=== PATIENT | female | born 1955 | race Caucasian/White ===

== ENCOUNTER 2017-06-08 13:02 | Emergency (ER) | payer MEDICAID ==
[~2017-06-08] VITALS: Ht 177.8 cm; Wt 101.8 kg
[~2017-06-08 13:02] MED LIST: ACET-890 PO; BISA10SU60 RC; CLA10T PO; CLOP75TA33 PO; DICL100G15 TOP; DILT-35 PO; LEVO112T5 PO; LORA1TAB PO; MINE120C3 TOP; ONDA4TAB12 PO; PARO20TA6 PO; PRAV40TA3 PO
[2017-06-08] MEDS ORDERED: HYDROcodone/acetaminophen 10/325mg tab PO ONE (13:30)
[2017-06-08] MEDS ORDERED: HYDR-565 PO (14:36)
[2017-06-08 14:43] VITALS: BP 146/72
== END 2017-06-08 14:45 | disposition home or self-care (01) ==
LOC: ER 13:02
DX: M54.10 Radiculopathy, site unspecified (principal); I25.10 Atherosclerotic heart disease of native coronary artery without angina pectoris; Z86.73 Personal history of transient ischemic attack (TIA), and cerebral infarction without residual deficits; Z98.890 Other specified postprocedural states; Z88.6 Allergy status to analgesic agent; Z88.5 Allergy status to narcotic agent; Z79.899 Other long term (current) drug therapy; Z87.891 Personal history of nicotine dependence; Z95.5 Presence of coronary angioplasty implant and graft
CPT/HCPCS: 99284

== ENCOUNTER 2017-07-05 09:21 | Emergency (ER) | payer MEDICAID ==
[~2017-07-05] VITALS: Ht 177.8 cm; Wt 101.0 kg
[~2017-07-05 09:21] MED LIST changes: +HYDR-565 PO
[2017-07-05 10:28] LABS: BASOPHILS % (AUTO) 0.6 % (0-1); EOSINOPHILS # (AUTO) 0.3 X10'3 (0-0.9); EOSINOPHILS % (AUTO) 4.2 % (0-6); HEMATOCRIT 32.4 % (35.0-45.0); HEMOGLOBIN 10.8 g/dl (12.0-16.0); LYMPHOCYTES # (AUTO) 1.2 X10'3 (1.1-4.8); LYMPHOCYTES % (AUTO) 18.8 % (21-51); MEAN CORPUSCULAR HEMOGLOBIN 26.1 PG (27.0-31.0); MEAN CORPUSCULAR HGB CONC 33.2 % (33.0-36.5); MEAN CORPUSCULAR VOLUME 78.6 FL (78-98); MEAN PLATELET VOLUME 8.2 FL (7.4-10.4); MONOCYTES # (AUTO) 0.6 X10'3 (0-0.9); MONOCYTES % (AUTO) 9.5 % (2-12); NEUTROPHILS # (AUTO) 4.1 X10'3 (1.8-7.7); NEUTROPHILS % (AUTO) 66.9 % (42-75); PLATELET COUNT 290 X10'3 (140-440); RED BLOOD COUNT 4.13 X10'6 (4.20-5.60); RED CELL DISTRIBUTION WIDTH 16.4 % (11.5-14.5); WHITE BLOOD COUNT 6.2 X10'3 (4.5-11.0)
[2017-07-05 10:53] LABS: ALANINE AMINOTRANSFERASE 34 U/L (12-78); ALBUMIN 3.6 G/DL (3.4-5.0); ALKALINE PHOSPHATASE 110 IU/L (46-116); ANION GAP 8 (8-16); ASPARTATE AMINO TRANSFERASE 19 U/L (10-37); BILIRUBIN,TOTAL 0.2 MG/DL (0.1-1.0); BLOOD UREA NITROGEN 16 MG/DL (7-18); BUN/CREATININE RATIO 22.2 (6.6-38.0); CHLORIDE 105 MMOL/L (99-107); CREATININE 0.72 MG/DL (0.40-0.90); GLUCOSE 99 MG/DL (70-104); POTASSIUM 3.9 MMOL/L (3.5-5.1); SODIUM 141 MMOL/L (135-145); TOTAL CARBON DIOXIDE 28.4 MMOL/L (24-32); TOTAL PROTEIN 7.1 G/DL (6.4-8.2); eGFR 82 ML/MIN
[2017-07-05 10:57] LABS: CLARITY,URINE CLEAR (Clear); COLOR,URINE YELLOW (Yellow); GLUCOSE, URINE NEGATIVE (Neg); KETONES,URINE NEGATIVE (Neg); LEUKOCYTE ESTERASE ,URINE NEGATIVE (Neg); NITRITES, URINE NEGATIVE (Neg); OCCULT BLOOD,URINE NEGATIVE (Neg); PROTEIN,URINE NEGATIVE (Neg); UROBILINOGEN,URINE 0.2 E.U/dL (0.2-1.0)
[2017-07-05 11:04] LABS: UA COLLECTION TYPE CLN CATCH MIDSTREAM
[2017-07-05 12:22] VITALS: BP 138/76
== END 2017-07-05 12:22 | disposition home or self-care (01) ==
LOC: ER 09:21
DX: R10.84 Generalized abdominal pain (principal); D64.9 Anemia, unspecified; I25.10 Atherosclerotic heart disease of native coronary artery without angina pectoris; Z86.73 Personal history of transient ischemic attack (TIA), and cerebral infarction without residual deficits; Z90.49 Acquired absence of other specified parts of digestive tract; Z98.61 Coronary angioplasty status; Z88.5 Allergy status to narcotic agent; Z88.6 Allergy status to analgesic agent
CPT/HCPCS: 36415; 80053; 81003; 85025; 85610; 99284

== ENCOUNTER → 2017-12-30 | Day surgery (SDC) | payer MEDICAID ==
[2017-12-24 11:23] LABS: BASOPHILS # (AUTO) 0.1 X10'3 (0-0.2); BASOPHILS % (AUTO) 0.7 % (0-1); EOSINOPHILS # (AUTO) 0.2 X10'3 (0-0.9); HEMOGLOBIN 12.1 g/dl (12.0-16.0); LYMPHOCYTES # (AUTO) 1.8 X10'3 (1.1-4.8); LYMPHOCYTES % (AUTO) 23.8 % (21-51); MEAN CORPUSCULAR HEMOGLOBIN 26.9 PG (27.0-31.0); MEAN CORPUSCULAR HGB CONC 33.7 % (33.0-36.5); MEAN CORPUSCULAR VOLUME 79.7 FL (78-98); MEAN PLATELET VOLUME 8.3 FL (7.4-10.4); MONOCYTES # (AUTO) 0.7 X10'3 (0-0.9); MONOCYTES % (AUTO) 8.8 % (2-12); NEUTROPHILS # (AUTO) 4.8 X10'3 (1.8-7.7); NEUTROPHILS % (AUTO) 64.7 % (42-75); PLATELET COUNT 354 X10'3 (140-440); RED BLOOD COUNT 4.51 X10'6 (4.20-5.60); RED CELL DISTRIBUTION WIDTH 16.1 % (11.5-14.5); WHITE BLOOD COUNT 7.4 X10'3 (4.5-11.0)
[2017-12-24 11:34] LABS: PARTIAL THROMBOPLASTIN TIME 27 SECONDS (22-32); PROTHROMBIN TIME 10.3 SECONDS (9.0-12.0)
[2017-12-24 11:40] LABS: ALANINE AMINOTRANSFERASE 67 U/L (12-78); ALBUMIN 3.9 G/DL (3.4-5.0); ALKALINE PHOSPHATASE 128 IU/L (46-116); ANION GAP 8 (8-16); ASPARTATE AMINO TRANSFERASE 40 U/L (10-37); BILIRUBIN,TOTAL 0.2 MG/DL (0.1-1.0); BLOOD UREA NITROGEN 24 MG/DL (7-18); BUN/CREATININE RATIO 26.1 (6.6-38.0); CALCIUM 9.5 MG/DL (8.5-10.1); CHLORIDE 104 MMOL/L (99-107); CREATININE 0.92 MG/DL (0.40-0.90); GLUCOSE 100 MG/DL (70-104); SODIUM 139 MMOL/L (135-145); TOTAL CARBON DIOXIDE 27.3 MMOL/L (24-32); TOTAL PROTEIN 7.9 G/DL (6.4-8.2); eGFR 62 ML/MIN
[~2017-12-30] VITALS: Ht 177.8 cm; Wt 97.3 kg
[~2017-12-30] MED LIST changes: +AMLO2.5T2 PO; +ATOR40TA PO; +BACL10TA PO; +CALC600T18 PO; +CHOL400C8 PO; +DEUT6TAB PO; +DILT120C51 PO; +FENO145T36 PO; +HYDR-3686 PO; -HYDR-565 PO; +LEVO150T8 PO; +LORazepam 0.5 MG tablet PO PRN; +PROM25TA14 PO; +diphenhydrAMINE 25mg capsule PO PRN; +nitroGLYCERIN 0.4mg SUBLingual tab SL PRN; +normal saline 1000ml 1,000 ML IV SCH
[2017-12-30 08:20] VITALS: BP 125/78
== END | disposition home or self-care (01) ==
LOC: SSTAY O 08:15
PROVIDERS: ATTEND Internal Medicine Cardiovascular Disease
DX: R94.39 Abnormal result of other cardiovascular function study (principal); Z53.8 Procedure and treatment not carried out for other reasons; R11.10 Vomiting, unspecified; I10 Essential (primary) hypertension; F31.9 Bipolar disorder, unspecified; M19.90 Unspecified osteoarthritis, unspecified site; D64.9 Anemia, unspecified; I25.10 Atherosclerotic heart disease of native coronary artery without angina pectoris; I69.398 Other sequelae of cerebral infarction; Z90.49 Acquired absence of other specified parts of digestive tract; Z88.6 Allergy status to analgesic agent; Z88.5 Allergy status to narcotic agent; Z79.899 Other long term (current) drug therapy; Z87.891 Personal history of nicotine dependence; Z79.01 Long term (current) use of anticoagulants; Z95.5 Presence of coronary angioplasty implant and graft; Z98.890 Other specified postprocedural states; Z82.49 Family history of ischemic heart disease and other diseases of the circulatory system
CPT/HCPCS: 36415; 71046; 80053; 85025; 85610; 85730; 93005; J7030

== ENCOUNTER 2018-01-21 11:13 | Outpatient (CLI) | payer MEDICAID ==
[~2018-01-21 11:13] MED LIST changes: -DILT-35 PO; -LEVO112T5 PO; -LORA1TAB PO; -LORazepam 0.5 MG tablet PO PRN; -MINE120C3 TOP; -ONDA4TAB12 PO; -PARO20TA6 PO; -PRAV40TA3 PO; -diphenhydrAMINE 25mg capsule PO PRN; -nitroGLYCERIN 0.4mg SUBLingual tab SL PRN; -normal saline 1000ml 1,000 ML IV SCH
== END 2018-01-21 23:59 | disposition home or self-care (01) ==
LOC: RAD 11:13
PROVIDERS: ATTEND Physician Assistant
DX: R16.0 Hepatomegaly, not elsewhere classified (principal); R11.14 Bilious vomiting; Z87.891 Personal history of nicotine dependence; Z86.79 Personal history of other diseases of the circulatory system
CPT/HCPCS: 76700

== ENCOUNTER 2018-03-24 09:42 | Day surgery (SDC) | payer MEDICAID ==
[2018-03-19 09:42] LABS: BASOPHILS % (AUTO) 0.6 % (0-1); EOSINOPHILS # (AUTO) 0.2 X10'3 (0-0.9); EOSINOPHILS % (AUTO) 3.4 % (0-6); HEMATOCRIT 34.9 % (35.0-45.0); HEMOGLOBIN 11.5 g/dl (12.0-16.0); LYMPHOCYTES # (AUTO) 1.8 X10'3 (1.1-4.8); LYMPHOCYTES % (AUTO) 30.6 % (21-51); MEAN CORPUSCULAR HGB CONC 32.9 % (33.0-36.5); MEAN CORPUSCULAR VOLUME 85.1 FL (78-98); MEAN PLATELET VOLUME 8.2 FL (7.4-10.4); MONOCYTES # (AUTO) 0.5 X10'3 (0-0.9); MONOCYTES % (AUTO) 9.4 % (2-12); NEUTROPHILS # (AUTO) 3.2 X10'3 (1.8-7.7); PLATELET COUNT 280 X10'3 (140-440); RED CELL DISTRIBUTION WIDTH 16.7 % (11.5-14.5); WHITE BLOOD COUNT 5.8 X10'3 (4.5-11.0)
[2018-03-19 09:55] LABS: ALANINE AMINOTRANSFERASE 73 U/L (12-78); ALBUMIN 3.1 G/DL (3.4-5.0); ALBUMIN/GLOBULIN RATIO 0.9 (1.1-1.5); ALKALINE PHOSPHATASE 73 IU/L (46-116); ANION GAP 7 (8-16); ASPARTATE AMINO TRANSFERASE 53 U/L (10-37); BILIRUBIN,TOTAL 0.2 MG/DL (0.1-1.0); BLOOD UREA NITROGEN 13 MG/DL (7-18); BUN/CREATININE RATIO 17.1 (6.6-38.0); CALCIUM 8.1 MG/DL (8.5-10.1); CHLORIDE 106 MMOL/L (99-107); CREATININE 0.76 MG/DL (0.40-0.90); GLUCOSE 99 MG/DL (70-104); SODIUM 142 MMOL/L (135-145); TOTAL CARBON DIOXIDE 29.4 MMOL/L (24-32); TOTAL PROTEIN 6.7 G/DL (6.4-8.2); eGFR 77 ML/MIN
[2018-03-19 10:03] LABS: PARTIAL THROMBOPLASTIN TIME 26 SECONDS (22-32); PROTHROMBIN TIME 10.1 SECONDS (9.0-12.0)
[~2018-03-24] VITALS: Ht 177.8 cm; Wt 95.8 kg
[2018-03-24] VITALS (13 sets, daily range): BP systolic 103–151; BP diastolic 52–99
[2018-03-24] MEDS ORDERED: LORazepam 0.5 MG tablet PO PRN (10:10)
[2018-03-24] MEDS ORDERED: diphenhydrAMINE 25mg capsule PO PRN (10:10)
[2018-03-24] MEDS ORDERED: normal saline 1000ml 1,000 ML IV SCH (10:10)
[2018-03-24] MEDS ORDERED: nitroGLYCERIN 0.4mg SUBLingual tab SL PRN (10:10)
[2018-03-24] MEDS ORDERED: [UNRECOGNIZED DRUG - OTHER] PO (11:46)
[2018-03-24] MEDS ORDERED: ASPI-1264 PO ×2 (11:46→11:57)
[2018-03-24] MEDS ORDERED: [UNRECOGNIZED DRUG - OTHER] PO (11:46)
[2018-03-24] MEDS ORDERED: [UNRECOGNIZED DRUG - OTHER] PO (11:46)
[2018-03-24] MEDS ORDERED: DOCU100C33 PO (11:57)
[2018-03-24] MEDS ORDERED: iohexol 350MG/ML 100ml bottle IV ONE (12:14)
[2018-03-24] MEDS ORDERED: heparin 1,000 UNITS/NS 500ml 500 ML ONE (12:14)
[2018-03-24] MEDS ORDERED: iohexol 350 MG/ML 50ML vial IV ONE (12:14)
[2018-03-24] MEDS ORDERED: fentaNYL/PF 50MCG/1 ML 2ML syringe ONE (12:14)
[2018-03-24] MEDS ORDERED: midazolam 2 mg/2 ml injection ONE (12:14)
[2018-03-24] MEDS ORDERED: LIDOcaine 1% (10mg/ml)w/preservative injection 20ml MDV ONE (12:29)
[2018-03-24] MEDS ORDERED: OXAZEpam 15mg capsule PO PRN (13:40)
[2018-03-24] MEDS ORDERED: HYDROcodone/acetaminophen 5mg/325mg tablet PO PRN (13:40)
[2018-03-24] MEDS ORDERED: ondansetron/PF 4mg/2ml inj IV PRN (13:40)
[2018-03-24] MEDS ORDERED: proCHLORperazine 10 MG/2 ml inj IV PRN (13:40)
[2018-03-24] MEDS ORDERED: HYDROcodone/acetaminophen 10/325mg tab PO PRN (13:40)
== END 2018-03-24 18:54 | disposition home or self-care (01) ==
LOC: SSTAY O 09:42
PROVIDERS: ATTEND Internal Medicine Cardiovascular Disease
DX: I25.10 Atherosclerotic heart disease of native coronary artery without angina pectoris (principal); G24.01 Drug induced subacute dyskinesia; I49.8 Other specified cardiac arrhythmias; E78.5 Hyperlipidemia, unspecified; F32.89 Other specified depressive episodes; F20.89 Other schizophrenia; Z98.51 Tubal ligation status; Z85.3 Personal history of malignant neoplasm of breast; Z92.21 Personal history of antineoplastic chemotherapy; Z79.82 Long term (current) use of aspirin; Z88.5 Allergy status to narcotic agent; Z88.6 Allergy status to analgesic agent; Z86.73 Personal history of transient ischemic attack (TIA), and cerebral infarction without residual deficits; Z87.891 Personal history of nicotine dependence; Z90.49 Acquired absence of other specified parts of digestive tract; Z98.890 Other specified postprocedural states; Z79.899 Other long term (current) drug therapy; Z82.49 Family history of ischemic heart disease and other diseases of the circulatory system
CPT/HCPCS: 36415; 71046; 80053; 85025; 85610; 85730; 93005; 93458; 99152; A6257; C1760; J1644; J2001; J2250; J3010; J7030; Q9967; A4620; C1769

== ENCOUNTER 2018-05-30 11:35 | Emergency (ER) | payer MEDICAID ==
[~2018-05-30] VITALS: Ht 177.8 cm; Wt 93.6 kg
[~2018-05-30 11:35] MED LIST changes: -ACET-890 PO; +ASPI-1264 PO; -BISA10SU60 RC; -CHOL400C8 PO; -DICL100G15 TOP; +DOCU100C33 PO; +[UNRECOGNIZED DRUG - OTHER] PO; +[UNRECOGNIZED DRUG - OTHER] PO; +[UNRECOGNIZED DRUG - OTHER] PO
[2018-05-30 11:57] VITALS: BP 140/87
[2018-05-30] MEDS ORDERED: traMADol 50MG tablet PO ONE (13:20)
[2018-05-30] MEDS ORDERED: TRAM50TA2 PO (13:53)
== END 2018-05-30 14:00 | disposition home or self-care (01) ==
LOC: ER 11:36
DX: M25.561 Pain in right knee (principal); I25.10 Atherosclerotic heart disease of native coronary artery without angina pectoris; Z86.73 Personal history of transient ischemic attack (TIA), and cerebral infarction without residual deficits; Z98.61 Coronary angioplasty status; Z90.49 Acquired absence of other specified parts of digestive tract; Z88.5 Allergy status to narcotic agent; Z79.82 Long term (current) use of aspirin; Z79.899 Other long term (current) drug therapy
CPT/HCPCS: 73564; 99283

== ENCOUNTER 2019-12-14 16:28 | Emergency (ER) | payer MEDICAID ==
[~2019-12-14] VITALS: Ht 177.8 cm; Wt 103.2 kg
[~2019-12-14 16:28] MED LIST changes: +FENO145T26 PO; -FENO145T36 PO
[2019-12-14 20:25] VITALS: BP 149/66
[2019-12-14] MEDS ORDERED: CEPH500C5 PO (20:45)
== END 2019-12-14 20:50 | disposition home or self-care (01) ==
LOC: ER 16:30
DX: R60.0 Localized edema (principal); I25.10 Atherosclerotic heart disease of native coronary artery without angina pectoris; I10 Essential (primary) hypertension; F20.9 Schizophrenia, unspecified; Z86.73 Personal history of transient ischemic attack (TIA), and cerebral infarction without residual deficits; Z90.89 Acquired absence of other organs; Z98.890 Other specified postprocedural states; Z88.5 Allergy status to narcotic agent; Z79.82 Long term (current) use of aspirin; Z79.2 Long term (current) use of antibiotics; Z79.899 Other long term (current) drug therapy
CPT/HCPCS: 93971; 99284

== ENCOUNTER 2020-05-03 14:05 | Outpatient (CLI) | payer MEDICARE, MEDICAID ==
[2020-05-03 15:22] LABS: BASOPHILS # (AUTO) 0.1 X10'3 (0-0.2); BASOPHILS % (AUTO) 0.8 % (0-1); EOSINOPHILS # (AUTO) 0.3 X10'3 (0-0.9); EOSINOPHILS % (AUTO) 3.1 % (0-6); LYMPHOCYTES # (AUTO) 2.2 X10'3 (1.1-4.8); MEAN CORPUSCULAR HEMOGLOBIN 25.7 PG (27.0-31.0); MEAN CORPUSCULAR HGB CONC 32.2 g/dL (33.0-36.5); MEAN CORPUSCULAR VOLUME 79.9 FL (78-98); MEAN PLATELET VOLUME 8.3 FL (7.4-10.4); MONOCYTES # (AUTO) 0.5 X10'3 (0-0.9); MONOCYTES % (AUTO) 6.2 % (2-12); NEUTROPHILS # (AUTO) 5.6 X10'3 (1.8-7.7); NEUTROPHILS % (AUTO) 64.9 % (42-75); PRE OP HEMATOCRIT 32.5 % (35.0-45.0); PRE OP PLATELET COUNT 398 X10'3 (140-440); RED BLOOD COUNT 4.07 X10'6 (4.20-5.60); RED CELL DISTRIBUTION WIDTH 16.9 % (11.5-14.5)
[2020-05-03 15:24] LABS: PRE OP HEMOGLOBIN 10.5 g/dL (12.0-16.0)
[2020-05-03 15:25] LABS: COLOR,URINE YELLOW (Yellow); GLUCOSE, URINE NEGATIVE (Neg); KETONES,URINE NEGATIVE (Neg); LEUKOCYTE ESTERASE ,URINE NEGATIVE (Neg); NITRITES, URINE NEGATIVE (Neg); OCCULT BLOOD,URINE NEGATIVE (Neg); PROTEIN,URINE NEGATIVE (Neg); UROBILINOGEN,URINE 0.2 E.U/dL (0.2-1.0)
[2020-05-03 15:37] LABS: ALBUMIN 3.7 G/DL (3.4-5.0); ALKALINE PHOSPHATASE 65 IU/L (46-116); BLOOD UREA NITROGEN 15 MG/DL (7-18); BUN/CREATININE RATIO 14.3 (6.6-38.0); CALCIUM 9.7 MG/DL (8.5-10.1); CHLORIDE 104 MMOL/L (99-107); CREATININE 1.05 MG/DL (0.40-0.90); PRE OP ALT 22 U/L (30-65); PRE OP ANION GAP 7 (8-16); PRE OP AST 16 U/L (10-37); PRE OP BILIRUB, TOTAL 0.2 MG/DL (0.0-1.0); PRE OP GLUCOSE 91 MG/DL (70-104); PRE OP POTASSIUM 3.7 MMOL/L (3.4-5.1); PRE OP SODIUM 138 MMOL/L (135-145); TOTAL CARBON DIOXIDE 27.1 MMOL/L (24-32); TOTAL PROTEIN 7.3 G/DL (6.4-8.2); eGFR 53 ML/MIN
[2020-05-03 15:45] LABS: UA COLLECTION TYPE CLN CATCH MIDSTREAM
[2020-05-03 15:48] LABS: CLARITY,URINE CLEAR (Clear)
[2020-05-03] MEDS ORDERED: PRAZ2CAP2 PO (16:10)
[2020-05-03] MEDS ORDERED: DILT-35 PO (16:10)
[2020-05-03] MEDS ORDERED: FERR325T28 PO (16:10)
[2020-05-03] MEDS ORDERED: LISI2.5T2 PO (16:10)
[2020-05-03] MEDS ORDERED: LAMO100T PO (16:10)
[2020-05-03] MEDS ORDERED: TRAZ-251 PO (16:10)
[2020-05-03] MEDS ORDERED: LEVO200T8 PO (16:10)
== END 2020-05-03 23:59 | disposition home or self-care (01) ==
LOC: PRE-OP 14:05 → EDSTATUS 05-10 12:45
PROVIDERS: ATTEND Obstetrics & Gynecology Obstetrics
DX: Z01.812 Encounter for preprocedural laboratory examination (principal); Z20.828 Contact with and (suspected) exposure to other viral communicable diseases
CPT/HCPCS: 36415; 80053; 81003; 85025; 86885; 86900; 86901; 87635

== ENCOUNTER 2020-07-30 18:16 | Emergency (ER) | payer MEDICARE, MEDICAID ==
[~2020-07-30] VITALS: Ht 177.8 cm; Wt 99.5 kg
[~2020-07-30 18:16] MED LIST changes: -AMLO2.5T2 PO; -ASPI-1264 PO; -ATOR40TA PO; -BACL10TA PO; -CALC600T18 PO; -CLOP75TA33 PO; -DEUT6TAB PO; +DILT-35 PO; +FERR325T28 PO; +LAMO100T PO; -LEVO150T8 PO; +LEVO200T8 PO; +LISI2.5T2 PO; +PRAZ2CAP2 PO; -PROM25TA14 PO; +TRAZ-251 PO; -[UNRECOGNIZED DRUG - OTHER] PO; -[UNRECOGNIZED DRUG - OTHER] PO; -[UNRECOGNIZED DRUG - OTHER] PO
[2020-07-30 18:24] VITALS: BP 148/78
--- NOTE | 2020-07-30 18:45 | NUR ---
Patient resting comfortably on gurney.
[2020-07-30] MEDS ORDERED: ketorolac tromethamine 15mg/ml inj. IM ONE (19:00)
[2020-07-30] MEDS ORDERED: ketorolac trometh. 30mg/ml inj. IM ONE (19:10)
== END 2020-07-30 19:16 | disposition home or self-care (01) ==
LOC: ER 18:16
DX: M25.562 Pain in left knee (principal); E03.9 Hypothyroidism, unspecified; I10 Essential (primary) hypertension; I25.10 Atherosclerotic heart disease of native coronary artery without angina pectoris; Z86.73 Personal history of transient ischemic attack (TIA), and cerebral infarction without residual deficits; Z98.61 Coronary angioplasty status; Z90.49 Acquired absence of other specified parts of digestive tract; Z88.6 Allergy status to analgesic agent; Z79.899 Other long term (current) drug therapy; Z88.8 Allergy status to other drugs, medicaments and biological substances
CPT/HCPCS: 96372; 99283; J1885

== ENCOUNTER 2020-12-14 14:32 | Emergency (ER) | payer MEDICARE, MEDICAID ==
[~2020-12-14] VITALS: Ht 177.8 cm; Wt 99.8 kg
[~2020-12-14 14:32] MED LIST changes: +LIDOcaine 1% W/epiNEPHrine 1:100,000 20ml vial ONE
[2020-12-14 15:22] VITALS: BP 130/61
[2020-12-14] MEDS ORDERED: SULF1TAB49 PO (15:55)
[2020-12-14] MEDS ORDERED: CEPH250T PO (15:55)
== END 2020-12-14 16:38 | disposition home or self-care (01) ==
LOC: ER 14:33
DX: L02.416 Cutaneous abscess of left lower limb (principal); I25.10 Atherosclerotic heart disease of native coronary artery without angina pectoris; I10 Essential (primary) hypertension; Z86.73 Personal history of transient ischemic attack (TIA), and cerebral infarction without residual deficits; Z90.49 Acquired absence of other specified parts of digestive tract; Z95.5 Presence of coronary angioplasty implant and graft; Z88.8 Allergy status to other drugs, medicaments and biological substances; Z79.2 Long term (current) use of antibiotics; Z79.899 Other long term (current) drug therapy; Z88.6 Allergy status to analgesic agent
CPT/HCPCS: 10060; 99283

== ENCOUNTER 2021-12-22 14:00 | Emergency (ER) | payer MEDICARE, MEDICAID ==
[~2021-12-22] VITALS: Ht 177.8 cm; Wt 101.8 kg
[~2021-12-22 14:00] MED LIST changes: -LIDOcaine 1% W/epiNEPHrine 1:100,000 20ml vial ONE; +LISI2.5T14 PO; -LISI2.5T2 PO
[2021-12-22 14:08] VITALS: BP 165/79
[2021-12-22] MEDS ORDERED: orphenadrine citrate 60mg/2ml inj. IM ONE (14:15)
[2021-12-22] MEDS ORDERED: HYDROcodone/acetaminophen 10/325mg tab PO ONE (14:15)
[2021-12-22] MEDS ORDERED: ketorolac trometh inj. 60 MG/2 ML VIAL IM ONE (14:15)
[2021-12-22] MEDS ORDERED: HYDR-3972 PO (15:23)
[2021-12-22] MEDS ORDERED: ORPH100T2 PO (15:23)
--- NOTE | 2021-12-22 15:25 | NUR ---
DR. PABLO AT BEDSIDE.
== END 2021-12-22 15:35 | disposition home or self-care (01) ==
LOC: ER 14:01
DX: M79.605 Pain in left leg (principal); I11.9 Hypertensive heart disease without heart failure; F20.9 Schizophrenia, unspecified; Z88.5 Allergy status to narcotic agent; Z79.899 Other long term (current) drug therapy
CPT/HCPCS: 72100; 72170; 96372; 99284; J1885; J2360

== ENCOUNTER 2023-08-17 08:27 | Emergency (ER) | payer MEDICARE, MEDICAID ==
[~2023-08-17] VITALS: Ht 177.8 cm; Wt 103.0 kg
[~2023-08-17 08:27] MED LIST changes: +ORPH100T4 PO
[2023-08-17 08:34] VITALS: BP 153/65; PULSE 61; RESP 18; TEMP 97.9; O2SAT 98
[2023-08-17] MEDS ORDERED: NYST15CR37 TOP (08:56)
[2023-08-17] MEDS: fluconazole 100mg tablet PO ONE (09:30)
[2023-08-17] MEDS ORDERED: NYSPWD TP (10:05)
== END 2023-08-17 09:46 | disposition home or self-care (01) ==
LOC: ER 08:28
DX: L30.8 Other specified dermatitis (principal); I10 Essential (primary) hypertension; I25.10 Atherosclerotic heart disease of native coronary artery without angina pectoris; Z86.73 Personal history of transient ischemic attack (TIA), and cerebral infarction without residual deficits; F20.9 Schizophrenia, unspecified; Z90.49 Acquired absence of other specified parts of digestive tract
CPT/HCPCS: 99283

== ENCOUNTER 2024-09-05 12:48 | Observation (INO) | payer MEDICARE, MEDICAID ==
[~2024-09-05] VITALS: Ht 177.8 cm; Wt 113.2 kg
[~2024-09-05 12:48] MED LIST changes: +NYSPWD TP
[2024-09-05 15:07] LABS: BASOPHILS % (AUTO) 0.5 % (0-1); EOSINOPHILS # (AUTO) 0.1 X10'3 (0-0.9); EOSINOPHILS % (AUTO) 1.2 % (0-6); HEMATOCRIT 32.9 % (35.0-45.0); HEMOGLOBIN 10.6 g/dl (12.0-16.0); LYMPHOCYTES # (AUTO) 1.1 X10'3 (1.1-4.8); LYMPHOCYTES % (AUTO) 14.4 % (21-51); MEAN CORPUSCULAR HEMOGLOBIN 27.3 PG (27.0-31.0); MEAN CORPUSCULAR HGB CONC 32.2 g/dL (33.0-36.5); MEAN CORPUSCULAR VOLUME 84.8 FL (78-98); MEAN PLATELET VOLUME 8.8 FL (7.4-10.4); MONOCYTES # (AUTO) 0.5 X10'3 (0-0.9); MONOCYTES % (AUTO) 6.2 % (2-12); NEUTROPHILS % (AUTO) 77.7 % (42-75); PLATELET COUNT 262 X10'3 (140-440); RED BLOOD COUNT 3.89 X10'6 (4.20-5.60); RED CELL DISTRIBUTION WIDTH 17.8 % (11.5-14.5); WHITE BLOOD COUNT 7.7 X10'3 (4.5-11.0)
[2024-09-05 15:17] LABS: ALANINE AMINOTRANSFERASE 34 U/L (12-78); ALBUMIN 3.7 G/DL (3.4-5.0); ALBUMIN/GLOBULIN RATIO 0.9 (1.1-1.5); ALKALINE PHOSPHATASE 86 IU/L (46-116); ANION GAP 6 (8-16); ASPARTATE AMINO TRANSFERASE 42 U/L (10-37); BILIRUBIN,TOTAL 0.5 MG/DL (0.1-1.0); BLOOD UREA NITROGEN 11 MG/DL (7-18); BUN/CREATININE RATIO 10.7 (10.0-20.0); CHLORIDE 105 MMOL/L (99-107); CREATININE 1.03 MG/DL (0.40-0.90); GLUCOSE 91 MG/DL (70-104); POTASSIUM 3.8 MMOL/L (3.5-5.1); SODIUM 138 MMOL/L (135-145); TOTAL CARBON DIOXIDE 27.5 MMOL/L (24-32); TOTAL PROTEIN 7.8 G/DL (6.4-8.2); eCRCL 56 ML/MIN; eGFR 53 ML/MIN
[2024-09-05] MEDS ORDERED: acetaminophen 325mg tablet PO PRN (15:50)
[2024-09-05] MEDS ORDERED: potassium Cl 40MEQ/1/2NS 520ml 520 ML IV PRN (15:50)
[2024-09-05] MEDS ORDERED: magnesium Cl slow-release 64mg tablet PO PRN (15:50)
[2024-09-05] MEDS ORDERED: magnesium sulf-water 4G/100mL 100 ML IV PRN (15:50)
[2024-09-05] MEDS ORDERED: potassium Cl 20 mEq SR tablet PO PRN (15:50)
[2024-09-05] MEDS ORDERED: magnesium sulf-water 2g/50mL 50 ML IV PRN (15:50)
[2024-09-05] MEDS ORDERED: magnesium hydroxide 30ml (MOM) UD suspension PO PRN (15:50)
[2024-09-05] MEDS: normal saline 1000ml 1,000 ML IV SCH (17:20)
[2024-09-05] MEDS: acetaminophen 1,000mg/100ml IV 100 ML IV STA (17:21)
[2024-09-05] MEDS: ketorolac trometh 15mg/ml vial 15 MG/ML ML IV STA (17:21)
[2024-09-05 17:33] LABS: DIGOXIN < 0.2 NG/ML (0.9-1.9)
[2024-09-05] MEDS ORDERED: HYDROmorphone inj. 0.5 MG/0.5 ML DISP.SYRIN IV PRN (18:10)
[2024-09-05] MEDS: docusate sod 100mg capsule PO SCH (20:00)
[2024-09-05] MEDS: K and/or MAG REPLACEMENT MC SCH (20:00)
[2024-09-05] MEDS: sulfmethoxaz/trimethoprim inj 10 ML in dextrose 5%-water 240 ML IV SCH (20:02)
[2024-09-05] MEDS: HYDROmorphone/PF 0.2 MG/ML SYRINGE IV PRN (20:07)
[2024-09-05] MEDS: heparin, porcine 5000 units/ml vial SQ SCH (20:19)
[2024-09-05] MEDS ORDERED: UNABLE TO OBTAIN (21:07)
[2024-09-05 22:00] VITALS: BP 122/103; PULSE 52; RESP 15; TEMP 97.6; O2SAT 95
[2024-09-05] MEDS: acetaminophen 325mg tablet PO PRN (22:02)
[2024-09-06 06:00] VITALS: BP 111/60; PULSE 53; RESP 13; TEMP 97.1; O2SAT 95
[2024-09-06 06:05] LABS: BASOPHILS % (AUTO) 0.5 % (0-1); EOSINOPHILS # (AUTO) 0.1 X10'3 (0-0.9); EOSINOPHILS % (AUTO) 2.1 % (0-6); HEMATOCRIT 29.4 % (35.0-45.0); HEMOGLOBIN 9.6 g/dl (12.0-16.0); LYMPHOCYTES # (AUTO) 1.1 X10'3 (1.1-4.8); LYMPHOCYTES % (AUTO) 18.6 % (21-51); MEAN CORPUSCULAR HEMOGLOBIN 27.8 PG (27.0-31.0); MEAN CORPUSCULAR HGB CONC 32.7 g/dL (33.0-36.5); MEAN CORPUSCULAR VOLUME 84.9 FL (78-98); MEAN PLATELET VOLUME 8.9 FL (7.4-10.4); MONOCYTES # (AUTO) 0.5 X10'3 (0-0.9); NEUTROPHILS # (AUTO) 4.1 X10'3 (1.8-7.7); NEUTROPHILS % (AUTO) 69.8 % (42-75); PLATELET COUNT 208 X10'3 (140-440); RED BLOOD COUNT 3.46 X10'6 (4.20-5.60); RED CELL DISTRIBUTION WIDTH 17.9 % (11.5-14.5); WHITE BLOOD COUNT 5.9 X10'3 (4.5-11.0)
[2024-09-06 06:37] LABS: ALANINE AMINOTRANSFERASE 29 U/L (12-78); ALBUMIN/GLOBULIN RATIO 0.8 (1.1-1.5); ALKALINE PHOSPHATASE 75 IU/L (46-116); ANION GAP 7 (8-16); ASPARTATE AMINO TRANSFERASE 38 U/L (10-37); BILIRUBIN,TOTAL 0.2 MG/DL (0.1-1.0); BLOOD UREA NITROGEN 12 MG/DL (7-18); BUN/CREATININE RATIO 12.5 (10.0-20.0); CALCIUM 8.3 MG/DL (8.5-10.1); CHLORIDE 104 MMOL/L (99-107); CREATININE 0.96 MG/DL (0.40-0.90); GLUCOSE 92 MG/DL (70-104); POTASSIUM 3.1 MMOL/L (3.5-5.1); SODIUM 138 MMOL/L (135-145); TOTAL CARBON DIOXIDE 26.8 MMOL/L (24-32); TOTAL PROTEIN 6.7 G/DL (6.4-8.2); eCRCL 60 ML/MIN; eGFR 58 ML/MIN
[2024-09-06] MEDS: potassium Cl 20 mEq SR tablet PO PRN (08:25)
[2024-09-06 10:00] VITALS: BP 129/73; PULSE 49; RESP 19; TEMP 97.8; O2SAT 97
[2024-09-06] MEDS ORDERED: BUSP10TA3 PO (10:21)
[2024-09-06] MEDS ORDERED: DEUT24TA (10:21)
[2024-09-06] MEDS ORDERED: FURO40TA4 PO (10:21)
[2024-09-06] MEDS ORDERED: METH-797 PO (10:21)
[2024-09-06] MEDS ORDERED: CARB1TAB36 PO (10:21)
[2024-09-06] MEDS ORDERED: CLOP75TA34 PO (10:21)
[2024-09-06] MEDS ORDERED: ARIP15TA68 PO (10:21)
[2024-09-06] MEDS ORDERED: ATOR40TA72 PO (10:21)
[2024-09-06] MEDS ORDERED: KEN0.1O TOP (10:21)
[2024-09-06] MEDS: carbidoba-levodopa 25-100mg tablet PO SCH (13:00)
[2024-09-06] MEDS: lamoTRIgine 100mg tablet PO SCH (13:00)
[2024-09-06] MEDS: aripiprazole 15 MG tablet PO SCH (13:00)
[2024-09-06] MEDS: nystatin 15 GM powder TP SCH (13:01)
[2024-09-06] MEDS: furosemide 40mg tablet PO SCH (13:01)
[2024-09-06] MEDS: lisinopril 2.5mg tablet PO SCH (13:01)
[2024-09-06] MEDS: METHOCARBAMOL 500 MG PO SCH (14:20)
[2024-09-06] MEDS ORDERED: METO-395 PO (14:24)
[2024-09-06] MEDS ORDERED: SULF1TAB49 PO (14:24)
[2024-09-06] MEDS ORDERED: HYDR-3965 PO (14:33)
[2024-09-06] MEDS: diphenhydrAMINE 25mg capsule PO PRN (15:37)
[2024-09-06] MEDS: ondansetron/PF 4mg/2ml inj IV PRN (16:18)
[2024-09-06] MEDS ORDERED: ONDA-103 PO (17:03)
[2024-09-06] MEDS: pantoprazole 40mg Tablet.DR PO ONE (18:15)
[2024-09-06] MEDS: calcium carbonate 500mg chew tablet PO ONE (18:16)
[2024-09-06] MEDS: diphenhydrAMINE 50 mg/ml inj IM ONE (19:35)
[2024-09-06] MEDS: diphenhydrAMINE 50 mg/ml inj IV PRN (19:38)
[2024-09-06] MEDS: ferrous sulfate 325mg tablet PO SCH (20:00)
[2024-09-06] MEDS ORDERED: calcium carbonate 500mg chew tablet PO SCH (21:30)
[2024-09-06 22:00] VITALS: BP 125/77; PULSE 60; RESP 18; TEMP 98.9; O2SAT 92
[2024-09-07] MEDS: dextrose 5%-1/2 normal saline 1,000 ML IV SCH
[2024-09-07 05:30] VITALS: BP 119/79; PULSE 59; RESP 19; TEMP 98.1; O2SAT 94
[2024-09-07 06:50] LABS: BASOPHILS % (AUTO) 0.4 % (0-1); EOSINOPHILS % (AUTO) 0.4 % (0-6); HEMATOCRIT 29.6 % (35.0-45.0); HEMOGLOBIN 9.7 g/dl (12.0-16.0); LYMPHOCYTES # (AUTO) 0.8 X10'3 (1.1-4.8); LYMPHOCYTES % (AUTO) 10.2 % (21-51); MEAN CORPUSCULAR HEMOGLOBIN 27.9 PG (27.0-31.0); MEAN CORPUSCULAR HGB CONC 32.9 g/dL (33.0-36.5); MEAN CORPUSCULAR VOLUME 84.9 FL (78-98); MONOCYTES # (AUTO) 0.5 X10'3 (0-0.9); MONOCYTES % (AUTO) 6.5 % (2-12); NEUTROPHILS # (AUTO) 6.7 X10'3 (1.8-7.7); NEUTROPHILS % (AUTO) 82.5 % (42-75); PLATELET COUNT 218 X10'3 (140-440); RED BLOOD COUNT 3.49 X10'6 (4.20-5.60); RED CELL DISTRIBUTION WIDTH 17.8 % (11.5-14.5); WHITE BLOOD COUNT 8.2 X10'3 (4.5-11.0)
[2024-09-07 06:59] LABS: ALANINE AMINOTRANSFERASE 17 U/L (12-78); ALBUMIN 2.9 G/DL (3.4-5.0); ALBUMIN/GLOBULIN RATIO 0.8 (1.1-1.5); ALKALINE PHOSPHATASE 71 IU/L (46-116); ANION GAP 4 (8-16); ASPARTATE AMINO TRANSFERASE 34 U/L (10-37); BILIRUBIN,TOTAL 0.3 MG/DL (0.1-1.0); BLOOD UREA NITROGEN 17 MG/DL (7-18); BUN/CREATININE RATIO 14.2 (10.0-20.0); CALCIUM 8.3 MG/DL (8.5-10.1); CHLORIDE 104 MMOL/L (99-107); GLUCOSE 77 MG/DL (70-104); MAGNESIUM 1.8 MG/DL (1.5-2.4); POTASSIUM 3.7 MMOL/L (3.5-5.1); SODIUM 136 MMOL/L (135-145); TOTAL CARBON DIOXIDE 28.3 MMOL/L (24-32); TOTAL PROTEIN 6.7 G/DL (6.4-8.2); eCRCL 48 ML/MIN; eGFR 45 ML/MIN
[2024-09-07] MEDS ORDERED: pantoprazole 40mg Tablet.DR PO ONE (07:30)
[2024-09-07 08:00] VITALS: BP 105/57; PULSE 55; RESP 16; RESP 18; TEMP 97.7; O2SAT 91; O2SAT 95
[2024-09-07] MEDS: clopidogrel 75mg tablet PO SCH (09:09)
[2024-09-07] MEDS: fenofibrate 145mg tablet PO SCH (09:09)
[2024-09-07] MEDS: atorvastatin 20mg tablet PO SCH (09:10)
[2024-09-07] MEDS: busPIRone 5mg tablet PO PRN (09:10)
[2024-09-07] MEDS: loratadine 10mg tablet PO SCH (09:10)
[2024-09-07] MEDS: levoTHYROXINE 100mcg tablet PO SCH (09:11)
[2024-09-07 10:00] VITALS: BP 119/83; PULSE 70; RESP 16; TEMP 97.5; O2SAT 91
== END 2024-09-07 12:38 | disposition home or self-care (01) ==
LOC: ER 12:49 → UNDOADMIN 15:55 → ED HOLD 15:55 → INTOOBSV 17:28 → ORTHO 4S 21:30
PROVIDERS: ADMIT Internal Medicine; ATTEND Internal Medicine
DX: S82.832A Other fracture of upper and lower end of left fibula, initial encounter for closed fracture (principal); L03.116 Cellulitis of left lower limb; E78.5 Hyperlipidemia, unspecified; E03.9 Hypothyroidism, unspecified; G24.01 Drug induced subacute dyskinesia; F99 Mental disorder, not otherwise specified; I25.10 Atherosclerotic heart disease of native coronary artery without angina pectoris; F20.9 Schizophrenia, unspecified; I10 Essential (primary) hypertension; F17.210 Nicotine dependence, cigarettes, uncomplicated; Z88.5 Allergy status to narcotic agent; Z79.899 Other long term (current) drug therapy; X58.XXXA Exposure to other specified factors, initial encounter; Y93.89 Activity, other specified; Y92.89 Other specified places as the place of occurrence of the external cause; Y99.8 Other external cause status
CPT/HCPCS: 73560; 73610; 73630; 80053; 80162; 83735; 93971; 96361; 96365; 96366; 96372; 96375; 97161; 99285; G0378; J1171; L4360; Q0163; 36415; 85025; 87081; 96374; 96376; 97116; J0131; J1200; J1644; J1885; J2405; J3490; J7030; J7060

== ENCOUNTER 2024-11-24 22:02 | Emergency (ER) | payer MEDICARE, MEDICAID ==
[~2024-11-24] VITALS: Ht 177.8 cm; Wt 104.6 kg
[~2024-11-24 22:02] MED LIST changes: +ARIP15TA68 PO; +ATOR40TA72 PO; +BUSP10TA3 PO; +CARB1TAB36 PO; +CLOP75TA34 PO; +DEUT24TA; -DILT-35 PO; -DILT120C51 PO; +FURO40TA4 PO; +KEN0.1O TOP; +METH-797 PO; +ONDA-103 PO; -ORPH100T4 PO; -PRAZ2CAP2 PO; -TRAZ-251 PO
--- NOTE | 2024-11-24 22:46 | Physician Documentation ---
History of Present Illness ~ Chief Complaint: Foot pain Stated Complaint: POST OP COMPLICATIONS/ANKLE PAIN Time Seen by MD: 22:40 Primary Medical Doctor: DR JUAN @ [facility] HPI Patient presents to the emergency room for evaluation of pain and swelling to her left lower extremity. Patient has a history of a tibia fracture and has been having swelling to the affected foot ever since the boot was taken off. Worse since yesterday as she was supposed to be wearing some degree of a splint but has not been because she is unsure how to wear it. They did not bring the splint with them Tetanus aldairin 5 years: Yes Medication Reconciliation Allergies: Coded Allergies: codeine (Verified Adverse Reaction, Unknown, RASH, 11/24/24) TOLERATED NORCO 05/2017 morphine (Verified Adverse Reaction, Unknown, RASH, 11/24/24) TOLERATED NORCO 05/2017 Scheduled Aripiprazole (Aripiprazole), 1 TAB PO DAILY, (Reported) Atorvastatin Calcium (Atorvastatin Calcium), 1 TAB PO DAILY, (Reported) Carbidopa/Levodopa (Carbidopa-Levodopa 25-100 Tab), 1 TAB PO TID, (Reported) Clopidogrel Bisulfate (Clopidogrel), 1 TAB PO DAILY, (Reported) Fenofibrate Nanocrystallized (Fenofibrate), 1 TAB PO DAILY, (Reported) Ferrous Sulfate* (Ferrous Sulfate*), 1 TAB PO BID, (Reported) Furosemide (Furosemide), 1 TAB PO DAILY, (Reported) Hydroxyzine Hcl* (Atarax*), 2 TAB PO PRN, (Reported) Lamotrigine (LaMICtal tablet), 100 MG PO DAILY, (Reported) Levothyroxine Sodium (Levothyroxine Sodium), 200 MCG PO DAILY, (Reported) Lisinopril (Lisinopril), 2.5 MG PO DAILY, (Reported) Loratadine* (Claritin*), 10 MG PO DAILY, (Reported) Methocarbamol (Methocarbamol), 1 TAB PO TID, (Reported) Nystatin (NYSTOP powder), 1 APPLIC TP QID Triamcinolone Acetonide 0.1% Crm* (Kenalog 0.1% Crm*), TOP DAILY, (Reported) Scheduled PRN Buspirone HCl (Buspirone HCl), 1 TAB PO BID PRN for anxiety, (Reported) Docusate Sodium (Dok), 1 TAB PO DAILY PRN for constipation, (Reported) Ondansetron HCl (Ondansetron HCl), 1 TAB PO Q6H PRN PRN for nausea/vomiting Miscellaneous Medications Deutetrabenazine (Austedo Xr), 24 MG, (Reported) Past Medical History Past Medical History: CVA/TIA/Stroke, Headache, Arrhythmia, Coronary Artery Disease, Hypertension, Thyroid (unspecified), Schizophrenia Past Surgical History: angioplasty, appendectomy, , other Alcohol Use: None Drug Use: none Lives In: Home Occupation: retired Review of Systems ROS All review of systems negative except as per HPI Physical Exam Vital Signs: Temperature: 98.2, Heart Rate: 70, Respiratory Rate: 22, BP: 14 1/78, Pulse Oximetry: 96, Weight: 104.600 Oxygen Flow Rate: 0 Physical Exam General: Patient is awake, alert, oriented x4 in no acute distress and well appearing.~ Head: Normocephalic and atraumatic. Eyes: Conjunctival normal. EOMI. PERRL. ENT: Mucous membranes moist. Neck: Supple, trachea is midline. Chest: Clear to auscultation bilaterally without rales, rhonchi, or wheezes. There is no accessory muscle use or retractions. Cardiac: RRR without murmurs, gallops, or rubs. Extremities: Significant swelling along with erythema associated with the patient's left lower extremity with the increased temperature to touch. Progress Results/Orders Results/Orders Orders - ABHIJEET DURAN MD Vl Venous (11/24/24 22:40) Ankle,Limited (Ap/Lat) (11/24/24 22:58) Cephalexin Capsule (Keflex Capsule) (11/25/24 00:15) Ondansetron Disint. Tablet (Zofran Odt T (11/25/24 00:15) Completed Orders - ABHIJEET DURAN MD Cbc/Diff (11/24/24 22:46) MG (11/24/24 22:46) Procalcitonin (11/24/24 22:46) BMP (11/24/24 22:46) Ankle,Limited (Ap/Lat) (11/24/24 22:58) Vital Signs 7/3/25 7/3/25 7/3/25 22:15 22:54 22:57 Temp 98.2 98.2 Pulse 70 54 Resp 22 14 16 B/P (MAP) 141/78 104/71 (82) Pulse Ox 96 95 O2 Flow Rate 0 0 Laboratory Tests Test 11/24/24 23:03 White Blood Count 8.7 Red Blood Count 3.87 L Hemoglobin 10.6 L Hematocrit 32.2 L Mean Corpuscular Volume 83.3 Mean Corpuscular Hemoglobin 27.5 Mean Corpuscular Hemoglobin Concent 33.0 Red Cell Distribution Width 15.0 H Platelet Count 314 Mean Platelet Volume 8.4 Neutrophils (%) (Auto) 79.0 H Lymphocytes (%) (Auto) 13.0 L Monocytes (%) (Auto) 5.9 Eosinophils (%) (Auto) 1.4 Basophils (%) (Auto) 0.7 Neutrophils # (Auto) 6.9 Lymphocytes # (Auto) 1.1 Monocytes # (Auto) 0.5 Eosinophils # (Auto) 0.1 Basophils # (Auto) 0.1 CBC Comment Sodium Level 134 L Potassium Level 3.7 Chloride Level 101 Carbon Dioxide Level 26.1 Anion Gap 7 L Blood Urea Nitrogen 19 H Creatinine 1.07 H Estimated GFR/1.73 m2 51 BUN/Creatinine Ratio 17.8 Glucose Level 116 H Calcium Level 8.5 Magnesium Level 1.8 Albumin 3.4 Procalcitonin < 0.05 Chemistry Comments Medical Decision Making Findings Patient presents to the emergency room with left lower swelling and associated pain. Differentials include but are not limited to DVT, cellulitis, postoperative edema therefore x-ray and ultrasound were ordered which were both reassuring. Labs ordered for investigation of sepsis however labs reassuring for no infection. Possible edema just from previous fracture however given risks versus benefits we will cover with antibiotic with ER precautions discussed. Departure Disposition: HOME / SELF CARE / HOMELESS Impression: Primary Impression: Cellulitis Condition: Stable Discharge Instructions: Cellulitis Referrals: NO PRIMARY CARE PROVIDER (PCP) Prescriptions Cephalexin*Monohydrate* (Keflex*) 500 Mg Capsule 1 CAP PO Q12H for 10 Days, #20 CAP Prov: ABHIJEET DURAN MD 11/25/24 Education Educated: Patient, Family Educated regarding: diagnosis, treatment, need for follow up Signature Scribe Signature: No scribe Attestation: The note accurately reflects work and decisions made by me.Abhijeet Duran MD 11/25/24 00:15 ABHIJEET DURAN MD Nov 24, 2024 22:46
[2024-11-24 22:54] VITALS: TEMP 98.2
[2024-11-24 23:13] LABS: MEAN PLATELET VOLUME 8.4 FL (7.4-10.4); RED CELL DISTRIBUTION WIDTH 15.0 % (11.5-14.5)
[2024-11-24 23:24] LABS: CREATININE 1.07 MG/DL (0.40-0.90); TOTAL CARBON DIOXIDE 26.1 MMOL/L (24-32); eCRCL 54 ML/MIN; eGFR 51 ML/MIN
[2024-11-25] MEDS ORDERED: CEPH-585 PO (00:15)
[2024-11-25] MEDS: ondansetron 4mg rapidly disintigrating tab PO ONE (00:38)
[2024-11-25 00:40] VITALS: BP 147/77; PULSE 58; RESP 16; O2SAT 98
--- NOTE | 2024-11-25 00:43 | RADIOLOGY REPORT ---
CLINICAL INDICATION: Left ankle pain TECHNIQUE: DI ANKLE,LIMITED (AP/LAT) Comparison: Left ankle radiograph from 09/05/2024 FINDINGS/IMPRESSION: : Healing distal fibular fracture with interval partial progressive incomplete healing with callus form ation since prior. Dorsal and plantar calcaneal enthesophytes. Distal achilles enthesophyte. Degenerative change of the dorsum of the midfoot. Subcutaneous edema in the distal left lower extremity.
--- NOTE | 2024-11-25 00:56 | VASCULAR REPORT ---
CLINICAL HISTORY: Left leg swelling and pain TECHNIQUE: Color and duplex doppler imaging of the left lower extremity veins was performed. Vessel c ompression if possible was also performed. WID: COMPARISON: VASC VL VENOUS on DOS: 09/05/24 FINDINGS: Right common femoral vein: Normal flow and phasicity. Left common femoral vein: Normal compressibility and flow. Left femoral vein: Normal compressibility and flow. Left popliteal vein: Normal compressibility and flow. Proximal calf veins are normally compressible. Mild subcutaneous edema in the left calf. IMPRESSION: NO SONOGRAPHIC EVIDENCE FOR DEEP VENOUS THROMBOSIS IN THE LEFT LOWER EXTREMITY VEINS. Mild subcutaneous edema in the left calf.
== END 2024-11-25 00:45 | disposition home or self-care (01) ==
LOC: ER 22:03
DX: L03.116 Cellulitis of left lower limb (principal); I10 Essential (primary) hypertension; I25.10 Atherosclerotic heart disease of native coronary artery without angina pectoris; F20.9 Schizophrenia, unspecified; Z86.73 Personal history of transient ischemic attack (TIA), and cerebral infarction without residual deficits; Z88.5 Allergy status to narcotic agent; Z90.49 Acquired absence of other specified parts of digestive tract; Z79.899 Other long term (current) drug therapy
CPT/HCPCS: 36415; 73600; 80048; 83735; 84145; 85025; 93971; 99284

== ENCOUNTER 2025-05-12 20:16 | Emergency (ER) | payer MEDICARE, MEDICAID ==
[2025-05-12 20:57] VITALS: BP 177/74; PULSE 66; RESP 15; TEMP 98.6; O2SAT 99
--- NOTE | 2025-05-12 23:01 | Physician Documentation ---
History of Present Illness ~ Chief Complaint: Mechanical Fall Stated Complaint: FALL/BACK PAIN Time Seen by MD: 22:49 Primary Medical Doctor: DR JUAN @ [facility] HPI This is a 69-year-old female who presents for evaluation of potential injuries sustained as a result of mechanical fall. She was getting out of bed, her right foot got caught, and she fell. She injured her right ribs. She reports an immediate onset pain. Worse with inspiration and palpation. The particular palliating factors. Did not attempt to treat it. Denies head strike. Does take blood thinners. Denies loss of consciousness. This is a time of my examination denies any chest pain or difficulty breathing, abdominal pain, nausea, vomiting or diarrhea. Denies any concerns for tobacco, alcohol or illicit substances use Tetanus within 5 Years?: Yes Medication Reconciliation Allergies: Coded Allergies: codeine (Verified Adverse Reaction, Unknown, RASH, 05/12/25) TOLERATED NORCO 05/2017 morphine (Verified Adverse Reaction, Unknown, RASH, 05/12/25) TOLERATED NORCO 05/2017 Scheduled Aripiprazole (Aripiprazole), 1 TAB PO DAILY, (Reported) Atorvastatin Calcium (Atorvastatin Calcium), 1 TAB PO DAILY, (Reported) Carbidopa/Levodopa (Carbidopa-Levodopa 25-100 Tab), 1 TAB PO TID, (Reported) Clopidogrel Bisulfate (Clopidogrel), 1 TAB PO DAILY, (Reported) Fenofibrate Nanocrystallized (Fenofibrate), 1 TAB PO DAILY, (Reported) Ferrous Sulfate* (Ferrous Sulfate*), 1 TAB PO BID, (Reported) Furosemide (Furosemide), 1 TAB PO DAILY, (Reported) Hydroxyzine Hcl* (Atarax*), 2 TAB PO PRN, (Reported) Lamotrigine (LaMICtal tablet), 100 MG PO DAILY, (Reported) Levothyroxine Sodium (Levothyroxine Sodium), 200 MCG PO DAILY, (Reported) Lisinopril (Lisinopril), 2.5 MG PO DAILY, (Reported) Loratadine* (Claritin*), 10 MG PO DAILY, (Reported) Methocarbamol (Methocarbamol), 1 TAB PO TID, (Reported) Nystatin (NYSTOP powder), 1 APPLIC TP QID Triamcinolone Acetonide 0.1% Crm* (Kenalog 0.1% Crm*), TOP DAILY, (Reported) Scheduled PRN Buspirone HCl (Buspirone HCl), 1 TAB PO BID PRN for anxiety, (Reported) Docusate Sodium (Dok), 1 TAB PO DAILY PRN for constipation, (Reported) Ondansetron HCl (Ondansetron HCl), 1 TAB PO Q6H PRN PRN for nausea/vomiting Miscellaneous Medications Deutetrabenazine (Austedo Xr), 24 MG, (Reported) Past Medical History Past Medical History: CVA/TIA/Stroke, Headache, Arrhythmia, Coronary Artery Disease, Hypertension, Thyroid (unspecified), Schizophrenia Past Surgical History: angioplasty, appendectomy, , other Alcohol Use: None Drug Use: none Lives In: Home Occupation: retired Review of Systems ROS 10 point review of systems was performed and unless noted above in HPI is negative for acute process/complaint. Physical Exam Vital Signs: Temperature: 98.6, Source: Temporal, Heart Rate: 66, Respiratory Rate: 15, BP: 177/74, Pulse Oximetry: 99 Physical Exam GENERAL: Awake, alert, oriented, GCS 15, no apparent distress, non-toxic appearing, answers questions, follows commands appropriately. Examined in [facility] bed 13. HEENT: Atraumatic, normocephalic, pupils equal, extraocular muscles intact, sclerae anicteric, mucus membranes moist, oropharynx is clear, no stridor. NECK: supple, full active range of motion, trachea midline, no thyromegaly, no lymphadenopathy, no JVD. No midline tenderness to palpation, no step-offs. CARDIOVASCULAR: regular rate/rhythm, no murmurs/gallops/rubs, Pulses are 2+ in all extremities and symmetric. Capillary refill less than 2 seconds. PULMONARY: Nonlabored, good air movement ,no respiratory distress, speaking in full sentences, clear to auscultation bilaterally, no wheezing, no ronchi, no rales, no accessory muscle use. GASTROINTESTINAL: Soft, non-tender, non-distended, normal active bowel sounds, no organomegaly, no pulsatile masses, no CVA tenderness. NEUROLOGIC: Lucid with normal mental status. Normal facial symmetry. Moves all extremities symmetrically and with purpose. No truncal ataxia. Speech is fluid without evidence of dysarthria or aphasia, no focal deficits appreciated. MUSCULOSKELETAL: There is full range of motion of all extremities. There is no joint pain or joint swelling or joint erythema. There is no muscle pain or tenderness or swelling. EXTREMITIES: warm, well-perfused, no cyanosis, no clubbing, no edema, no acute deformities. Skin: warm, dry, no rashes or lesions, no jaundice, no petechiae orpurpura. No ecchymosis. PSYCHIATRIC: Normal affect, normal insight, normal concentration. Focused exam: There is tenderness to palpation and moves into the right lateral and posterior chest wall. No crepitus. No flail segments. Progress Results/Orders Results/Orders Orders - CHRISTOS REINOSO DO Ct Head (05/12/25 22:54) Ct Cervical Spine (05/12/25 ) Ct Chest Abdomen Pelvis (05/12/25 ) Completed Orders - CHRISTOS REINOSO DO Ct Head (05/12/25 22:54) Ct Cervical Spine (05/12/25 ) Ct Chest Abdomen Pelvis (05/12/25 ) Vital Signs 05/12/25 20:57 Temp 98.6 Pulse 66 Resp 15 B/P (MAP) 177/74 Pulse Ox 99 Medical Decision Making Additional information obtaine: family Findings Facility Status: ED Holds, RME process The plan was discussed with the patient, who demonstrates clear understanding of the plan and is in agreement with the plan unless otherwise noted in the chart. All questions have been answered, all concerns were addressed unless otherwise documented. I was available throughout their ED stay for frequent reassessment and questions. Differential Diagnoses (considered and possible or likely): [Ground level fall, acute traumatic pain, closed head injury, concussion, subdural, subarachnoid, cervical spine fracture or subluxation, chest wall contusion, rib fractures, hematoma, less likely acute intrathoracic or intra-abdominal injury.] ??Differential Diagnoses (considered and unlikely, not requiring evaluation c urrently): [No evidence of lateralizing signs to suspect a stroke] MDM Data Please see HPI for the following: Independent Historians and external Records Review. Historian: [Patient] Independent Historians: ?[Family] Medication Management: [Reviewed medication list] Social History and determinants: [Reviewed] Please see the body of the note for the following: Any independent interpretations of ECG, imaging studies. All vitals signs/haemodynamics, ordered tests were independently reviewed and interpreted by myself. Nursing triage complaint and vitals reviewed, additional nursing notes were reviewed as available and I agree unless otherwise noted or documented in contradiction in the chart Vital Signs: Independently reviewed Labs: Independently interpreted Imaging: Independently interpreted Old Medical Records: Independently reviewed, see HPI for relevant summary and information Pulse Oximetry: [99%] interpreted as [normal on room air] by me [[employer] Teacher: [Regular Rate, Regular rhythm, no ectopy, NSR] reviewed and interpreted by me] Additionally notably showing: [Hemodynamically stable for age. Imaging was reviewed. Head CT shows no acute intracranial hemorrhage, mass effect or midline shift. CT C-spine shows no acute fracture or subluxation. CT of the chest, abdomen and pelvis shows no acute findings. No broken ribs.] Tests considered but not ordered include: [Hematologic workup has been considered but does not appear to be necessary given mechanical nature of the injury.] Social Determinants of Health Impact: Patient was evaluated in [facility] [place] to healthcare due to below par ratio of patient to medical providers. [] Comorbid Conditions Impacting Present Evaluation and Care/Treatment: [Anticoagulated] Management Discussions with other Healthcare Providers: [None] Treatment and Disposition Medication Management (Given or considered): []. See EMR for details Consideration for Hospitalization/Escalation/Deescalation of Care: Admission for observation has been considered, [however the patient is able to tolerate p.o., their symptoms are controlled, they are able to rely on oral medications, and their chief complaint/diagnosis can be managed on outpatient basis.] ?ED Course:?[No clinical deterioration] ?Shared decision making:?[Patient is hemodynamically stable for discharge home with follow with their primary care provider. [ ] Specific and cautious return precautions provided and discussed with full understanding. Any incidental findings were also discussed and follow up recommendations given. [] All questions answered. Patient/family were able to verbalize back return precautions. Patient/family agree to plan. Copies of imaging and laboratory studies were provided.] Code status:?FULL Please see the full Electronic Medical Record for full details of nursing documentation, medications list, other records of complete past medical history and conditions, vital signs, laboratory studies, and any radiologic study interpretations by radiologists. Portions of this note were completed using [email or web address] dictation software and as a result there may exist minor errors in spelling. I have reviewed elements of past family and social history and agree as included in note. Differential Dx:Considerations: Include: Other (See body of the main note for differential diagnosis) Departure Disposition: 01 HOME / SELF CARE / HOMELESS Impression: Primary Impression: Ground-level fall Additional Impressions: Chest wall contusion Acute traumatic pain Condition: Improved Discharge Instructions: Chest Wall Pain Referrals: NO PRIMARY CARE PROVIDER (PCP) Education Educated: Patient, Family Educated regarding: diagnosis, treatment, prognosis, need for follow up Signature Scribe Signature: No scribe Attestation: The note accurately reflects work and decisions made by me.Christos Reinoso DO 05/12/25 23:04 CHRISTOS REINOSO DO May 12, 2025 23:01
--- NOTE | 2025-05-12 23:49 | RADIOLOGY REPORT ---
EXAM: CT CT HEAD INDICATION: fall, pain TECHNIQUE: CT of the head without intravenous contrast. Radiation Dose Information: CT Dose: CTDI volume is 69.18 mGy. Dose-length product is 1142.63 mGy*cm The dose indicators for CT are the volume Computed Tomography (CT) Dose Index (CTDIvol) and the Dose Length Product (DLP), and are measured in units of mGy and mGy-cm, respectively. These indicators are not patient dose, but values generated from the CT scanner acquisition factors. The report includes radiation exposure data for exposures received during this examination. COMPARISON: None FINDINGS: There is no evidence of acute intracranial hemorrhage, extra-axial collection, mass effect, midline shift, herniation or hydrocephalus. The ventricles, sulci and cisterns are age appropriate. The hughes-white differentiation is intact. Patchy periventricular and subcortical white matter hypoattenuation is nonspecific but may be related to small vessel ischemic disease. The visualized paranasal sinuses and mastoid air cells are clear. The surrounding soft tissues and osseous structures are unremarkable. IMPRESSION: No acute intracranial abnormality.
--- NOTE | 2025-05-12 23:50 | RADIOLOGY REPORT ---
EXAM: CT CT CERVICAL SPINE HISTORY: fall, pain COMPARISON: None CTDIvol 21.43 mGy, DLP 559.83 mGy*cm. TECHNIQUE: Multiple axial CT images of the spine were obtained using bone algorithm. Axial and coronal reformatting was done. Bone and soft tissue windows were reviewed. FINDINGS: No evidence of definite acute fracture, spinal dislocation, or significant appearing acute subluxation is seen. IMPRESSION: No acute abnormality.
--- NOTE | 2025-05-12 23:54 | RADIOLOGY REPORT ---
EXAM: CT CT CHEST ABDOMEN PELVIS History: fall, pain R ribs 5-9 laterally/posteriorly w/bruising Comparison Study: PELVIS,LIMITED 1-2 VIEWS on DOS: 12/22/21 TECHNIQUE: Multidetector spiral CT of the chest, abdomen and pelvis was performed from lower neck to pubic symphysis Axial, coronal and sagittal multiplanar reformats were performed by the technologist on a separate workstation. Radiation Dose : 1. Chest/Abdomen/Pelvis: CTDIvol 31.42 mGy, DLP 1497.95 mGy*cm. FINDINGS: Lower neck: Normal thyroid. Lungs: No focal consolidation, pleural effusion or pneumothorax. Heart/Vascular Structures: Normal heart size. No pericardial effusion. Lymph Nodes: No adenopathy Pleura: No pleural effusion or significant pneumothorax. Liver: The liver is normal in size. No focal lesions. Normal hepatic vascular enhancement. Gallbladder and Biliary Tree: Unremarkable Spleen: Unremarkable Pancreas: The pancreas is normal in appearance without focal lesions or abnormal enhancement. Adrenal Glands: Unremarkable Kidneys: Kidneys demonstrate normal symmetric enhancement without focal lesions, calculi or hydronephrosis. Bladder: Unremarkable Bowel: The stomach is grossly normal in appearance. Small bowel and colon are normal in caliber and distribution. The appendix is not visualized; however, no secondary findings of acute appendicitis identified. Ascites: Absent Lymphadenopathy: No mesenteric, retroperitoneal or periportal lymphadenopathy. Abdominal Wall and Mesentery: Unremarkable. Vasculature: The visualized abdominal aorta is normal in size and caliber. Abdominal and pelvic vessels demonstrate normal enhancement. Pelvic Organs: Unremarkable Musculoskeletal: No aggressive focal bony lesions, acute fractures or dislocation. IMPRESSION: No acute findings involving the chest, abdomen or pelvis.
== END 2025-05-13 00:21 | disposition home or self-care (01) ==
LOC: ER 20:16
DX: S20.211A Contusion of right front wall of thorax, initial encounter (principal); I25.10 Atherosclerotic heart disease of native coronary artery without angina pectoris; I10 Essential (primary) hypertension; F20.9 Schizophrenia, unspecified; G89.11 Acute pain due to trauma; Z88.5 Allergy status to narcotic agent; Z90.49 Acquired absence of other specified parts of digestive tract; Z86.73 Personal history of transient ischemic attack (TIA), and cerebral infarction without residual deficits; Z79.899 Other long term (current) drug therapy; Z98.890 Other specified postprocedural states; W06.XXXA Fall from bed, initial encounter; Y93.89 Activity, other specified; Y92.89 Other specified places as the place of occurrence of the external cause; Y99.8 Other external cause status
CPT/HCPCS: 70450; 71250; 72125; 74176; 99284